=== PATIENT | female | born 1935 | race Caucasian/White ===

== ENCOUNTER 2016-05-23 16:30 | Inpatient (IN) | payer MEDICARE, OTHER ==
[~2016-05-23] VITALS: Ht 149.9 cm; Wt 75.7 kg
--- NOTE | ~2016-05-23 | CON ---
PATIENT'S NAME: BERTA SHAY [facility] AGE: 80 Y [address] ROOM: [place] [address] [place] [facility] [place]: 05/24/2016 Consultation DISCHARGE DATE: FAMILY PHYSICIAN: FILIPE CHRISTINE MD ATTENDING PHYSICIAN: Alek Akins DATE OF CONSULTATION: 05/23/2016 This is a [facility] Nephrology consultation. REASON FOR CONSULTATION: End-stage renal disease, on hemodialysis therapy with failed AV graft. HISTORY OF PRESENT ILLNESS: This is a 80-year-old female patient, who is well known to Dr. Akins in Nephrology, who presented to dialysis on Monday as routinely scheduled. She was found to have a very minimal bruit with clot return after attempting to access her AV graft in her left upper extremity. Therefore, the patient was unable to have her regular dialysis that she gets on Monday, Monday, Monday at [facility] in [place]. The patient has had a longstanding history of complications with her dialysis access and most recently [facility] for consultation for HeRO graft. The patient does follow with Dr. Sandoval and has had multiple fistulograms for access complications. She does have a past medical history of end-stage renal failure from diabetes and hypertension. Therefore, due to her history of end-stage renal disease, Nephrology has been consulted to manage her inpatient dialysis. PAST MEDICAL HISTORY: 1. Diabetes mellitus. 2. Hypertension. 3. Hyperlipidemia. 4. Chronic constipation. 5. Osteoporosis. 6. End-stage renal failure, on hemodialysis 3 days a week. 7. Spinal stenosis. 8. Peripheral vascular disease. 9. Paroxysmal atrial fibrillation. 10. Anemia of chronic kidney disease. 11. History of polio with residual scoliosis. 12. Diabetic retinopathy. PAST SURGICAL HISTORY: As listed above including: PATIENT'S NAME: BERTA SHAY [facility] AGE: 80 Y [address] ROOM: [place] [address] [place] [facility] [place]: 05/24/2016 Consultation DISCHARGE DATE: FAMILY PHYSICIAN: FILIPE CHRISTINE MD ATTENDING PHYSICIAN: Alek Akins 1. Left arm fistulogram with fistula passing in 2015. 2. Left arm AV graft fistulogram with angioplasty in August of 2015. 3. Tunneled dialysis catheter placement. 4. Right eye cataract surgery. 5. Right upper arm primary brachiocephalic AV fistula placement, failed. 6. Fistulogram and fistuloplasty of the left AV graft in September of 2015 and fistulogram of a poorly-functioning left AV graft in April of 2016. ALLERGIES: TO PENICILLIN. CURRENT HOME MEDICATIONS: 1. Levemir 35 units subcu every morning. 2. Losartan 50 mg p.o. b.i.d. 3. Amlodipine 2.5 mg q.h.s. 4. Coreg 25 mg p.o. b.i.d. 5. Sotalol 120 mg p.o. b.i.d. 6. Coumadin 4 mg p.o. 3 days a week. 7. Zantac 150 mg p.o. q.h.s. 8. Simvastatin 40 mg p.o. q.h.s. 9. Requip 0.25 mg p.o. q.h.s. 10. Aspirin 81 mg p.o. daily. 11. Ascorbic acid 500 mg p.o. daily. 12. Multivitamin 1 tablet daily. 13. PreserVision 1 tab twice a day. 14. Bumex 2 mg 4 days a week. 15. Renvela 800 mg p.o. 3 times a week. 16. Coumadin 8 mg p.o. 4 days a week. 17. Plavix 75 mg p.o. daily. 18. [place]-3 fatty acids 2000 mg p.o. b.i.d. 19. Acetaminophen 325/650 mg p.o. q.6 hours p.r.n. pain or fever. 20. Vitamin D3 1000 units p.o. 3 days a week. 21. Tylenol PM 1 tablet p.o. q.h.s. insomnia. 22. Lidocaine patch topically every day as needed for pain. 23. Tessy-Colace 1 tablet p.o. 2 days of the week. 24. Metamucil capsule 1 capsule p.o. daily. 25. Refresh tears 1 drop ophthalmic p.r.n. dry eyes. 26. Claritin 10 mg p.o. daily p.r.n. allergies. 27. Lidocaine cream 1 application topically 3 days a week prior to dialysis. SOCIAL HISTORY: The patient does live at [facility] by herself. She does have a caregiver 5 days of the week. Her daughter is very involved in her care. She does have a remote history of a [id number] history of smoking and does not smoke currently. She denies any illicit drug use or drinking alcohol at PATIENT'S NAME: BERTA SHAY [facility] AGE: 80 Y [address] ROOM: [place] [address] [place] [facility] [place]: 05/24/2016 Consultation DISCHARGE DATE: FAMILY PHYSICIAN: FILIPE CHRISTINE MD ATTENDING PHYSICIAN: Alek Akins this time. FAMILY HISTORY: Significant for diabetes and coronary artery disease. There is no history of renal disease or dialysis. REVIEW OF SYSTEMS: GENERAL: Denies any fever, chills, or night sweats. EYES: Denies any new changes. NOSE: No epistaxis or rhinorrhea. MOUTH: No gingival bleeding. THROAT: No sore throat, hoarseness, or cough. RESPIRATORY: Denies wheezing or hemoptysis. CARDIOVASCULAR: Denies any chest pain or palpitations. GASTROINTESTINAL: Denies any nausea, vomiting, or diarrhea. GENITOURINARY: She does continue to make urine despite dialysis. MUSCULOSKELETAL: Denies any new arthralgias or myalgias. HEMATOLOGICAL: Denies any bruising or easy bleeding on Plavix or Coumadin therapy. IMMUNOLOGICAL: Denies recent infections. PSYCHIATRIC: Denies depression or anxiety. NEUROLOGICAL: Denies any numbness or tingling in the upper or lower extremities. PHYSICAL EXAMINATION: VITAL SIGNS: Blood pressure 117/79, pulse 66, respirations 18, temperature is 97.3, and saturations are 97% on room air. GENERAL: On exam, this is a very pleasant, elderly white female, who appears her approximate stated age, in no acute distress. She is drowsy today. HEENT: Her head is normocephalic and atraumatic. Pupils equal, round, and reactive to light and accommodation. EOMs are intact. Nose is midline. Mouth: No gingival bleeding. Mucosa is pink and moist. NECK: Soft and supple. CARDIOVASCULAR: Regular rate and rhythm with unable to appreciate any murmurs, rubs, or thrills. LUNGS: Clear to auscultation anteriorly and posteriorly. Breaths are nonlabored. GASTROINTESTINAL: Bowel sounds are positive, nontender, nondistended. EXTREMITIES: Show no signs of peripheral edema, clubbing, or cyanosis. She does have an AV graft in the left upper extremity with no thrill as well as a right AV fistula with no thrill. SKIN: No new lesions or rashes. NEUROLOGIC: Cranial nerves 2 through 12 are grossly intact. LABORATORY DATA: PATIENT'S NAME: BERTA SHAY [facility] AGE: 80 Y [address] ROOM: [address] [address] [place] [facility] [place]: 05/24/2016 Consultation DISCHARGE DATE: FAMILY PHYSICIAN: FILIPE CHRISTINE MD ATTENDING PHYSICIAN: Alek Akinsiaz Hemoglobin is 10.1, hematocrit is 31.6, WBC is 5.9, and platelets are 161. Sodium is 148, potassium is 5.8, chloride is 106, CO2 is 24, BUN is 77, creatinine is 7.7, glucose is 150. INR is 2.4, PT is 26.9. ASSESSMENT AND PLAN: 1. End-stage renal disease, on hemodialysis therapy. We will obtain the patient's outpatient clinical record and provide hemodialysis accordingly. 2. Left failed AV graft. The patient is scheduled for a temporary line placement today with Interventional Radiology. We will await recommendations. The patient is also scheduled for a venogram [facility] next week on Monday for an upcoming HeRO graft placement. At this time, we will get and provide hemodialysis accordingly. 3. Diabetes mellitus. Per hospitalist. 4. Hyperphosphatemia. The patient is to continue her Renvela. 5. Anemia of chronic kidney disease. Continue Mircera 50 mcg every 4 weeks. This patient has been seen and assessed by Dr. Mcdowell. Her care is being conducted in consultation with Dr. Mcdowell as well as me. We will plan further recommendations as they are forthcoming. TALISHA TORRES DNP, NURSE MIDWIFE FOR MARLENE MCDOWELL MD ENS/modl /[id number] d: 05/25/161909 t: 06/03/16 1410, CONSULTATION REPORT
--- NOTE | ~2016-05-23 | DS ---
PATIENT'S NAME: BERTA SHAY [facility] AGE: 80 Y [address] ROOM: [address] [place], [place] [address] LOCATION: [facility] [place] ADMIT DATE: 05/24/2016 Discharge Summary DISCHARGE DATE: 05/26/2016 FAMILY PHYSICIAN: Brice Mohan MD ATTENDING PHYSICIAN: Matt Akins DISCHARGE DIAGNOSES: 1. End-stage renal disease, on hemodialysis. 2. Poorly functioning left AV graft. 3. Type 2 diabetes. 4. Hypertension. 5. Paroxysmal atrial fibrillation. 6. Long-term anticoagulation, on Coumadin. PRECEDURES: Tunnel graft catheter for dialysis REASON FOR ADMISSION: A poorly functioning left AV graft and difficulty with renal hemodialysis. LABORATORY DATA: Blood sugars have been in the 97 to 217 range, so fair control. White count yesterday 7.0 with hemoglobin 10.5 and platelets 153. Glucose yesterday at 9:40 a.m. was 149 with creatinine 5.4 and BUN 43, this was before hemodialysis. GFR was 8. Hemoglobin A1c 4.9. Protimes have come down since she was hospitalized on 05/23 at 2.4, protime was 1.6 at 2:28 a.m. yesterday and 1.3 at 8:58 prior to the procedure. She had a fluoroscopic-guided right temporary dialysis catheter placement, which was tunneled under moderate sedation. She was switched to the tunnel dialysis catheter from an external jugular vein temporary dialysis space. HOSPITAL COURSE: The patient's "Goofyness" per her daughter has improved post-dialysis. They took off a total of 3 L over 2 days, and the temporary dialysis catheter yesterday was working "better," but she cannot have that in long-term and so she is being transferred [facility] to Dr. Saleh for placement of a Taiwo catheter for long-term dialysis. The patient and family understand the need and the risks, and have agreed to the transfer. Meds will be per nursing med recon, and diet will be n.p.o. until she is in [place] and then they can decide. Activity will be per PT and ambulance crew, she is not moving on her own. Time on discharge was > 30 minutes. MD JOCELYN SOLOMON/unique PATIENT'S NAME: BERTA SHAY [facility] AGE: 80 Y [address] ROOM: [place] [address] LOCATION: [facility] [place] ADMIT DATE: 05/24/2016 Discharge Summary DISCHARGE DATE: 05/26/2016 FAMILY PHYSICIAN: Brice Mohan MD ATTENDING PHYSICIAN: Matt Akins /[id number] d: 05/27/16 0330 t: 05/27/16 1525, DISCHARGE SUMMARY
--- NOTE | ~2016-05-23 | HP ---
PATIENT'S NAME: BERTA SHAY [facility] AGE: 80 Y [address] ROOM: [place] [address] [place]ATION: [facility] [place] ADMIT DATE: 05/23/2016 History & Physical DISCHARGE DATE: FAMILY PHYSICIAN: FILIPE CHRISTINE MD ATTENDING PHYSICIAN: Alek Akins DATE OF SERVICE: CHIEF COMPLAINT: End-stage renal disease, failed hemodialysis access. HISTORY OF PRESENT ILLNESS: This is a 80-year-old female with a history of end-stage renal disease, on hemodialysis, Monday, Monday, and Monday who was admitted here having a failed fistula and was unable to get her dialysis today. The patient had a long history of issues with the fistula clotting up including needing to see a specialist in [place] for second opinion and trying to find a long-term solution for her access issues. As that been going on, the patient was attempting to have her scheduled hemodialysis done today, but the dialysis nurses were unable to access the left fistula that she has today. She did not get any dialysis done today. Last dialysis was on Monday. Dr. Akins and Dr. Mcdowell are the patient's director meetings and they will follow the patient while inpatient. Plan is to get a tunneled catheter with IR tomorrow. The patient currently denies any chest pain, shortness of breath, dizziness, or lightheadedness. Denies any cough, nausea, vomiting, diarrhea, or constipation. No fever or chills. PAST MEDICAL HISTORY: 1. End-stage renal disease on hemodialysis Monday, Monday, Monday. 2. Type 2 diabetes. 3. Hypertension. 4. Paroxysmal AFib, on Coumadin. FAMILY HISTORY: Father had CABG at age 98, also, had history of hypertension, diabetes, dyslipidemia. Mother also had history of diabetes. SOCIAL HISTORY: The patient is since 2009. Former smoker. Occasional alcohol usage. REVIEW OF SYSTEMS: A 10-point review of systems was conducted and were all negative except as described in the HPI. PHYSICAL EXAMINATION: PATIENT'S NAME: BERTA SHAY [facility] AGE: 80 Y [address] ROOM: [address] [address] LOCATION: [facility] [place] ADMIT DATE: 05/23/2016 History & Physical DISCHARGE DATE: FAMILY PHYSICIAN: FILIPE CHRISTINE MD ATTENDING PHYSICIAN: Alek Akins VITAL SIGNS: The patient is afebrile, blood pressure 134/78, pulse 66, respiratory rate 18, temperature 98.1, and saturating 98% on room air. GENERAL: The patient is awake, alert, and oriented x3 in no acute distress. HEENT: Moist mucous membranes. No jaundice or conjunctival pallor noted. SKIN: Without rash or lesions. CHEST: Clear to auscultation bilaterally. HEART: S1, S2, regular rate and rhythm. ABDOMEN: Soft, nontender, nondistended. Positive bowel sounds. NEURO: Grossly nonfocal. EXTREMITIES: Trace pitting edema bilaterally. MUSCULOSKELETAL: No redness, swelling, or reduction in range of motion noted in all upper and lower extremities. ASSESSMENT AND PLAN: 1. Failed dialysis access. The patient uses right upper arm primary brachiocephalic arteriovenous fistula 3 times a week, which has clotted up, and giving her trouble for the last several weeks now. The patient was not able to get hemodialysis today due to this. She is admitted for placement of possible tunneled catheter by IR so she gets her dialysis. Nephrology doctor will follow along during hospitalization. 2. Paroxysmal atrial fibrillation, on Coumadin. We will hold Coumadin and type and cross and prepare 2 units of fresh frozen plasma in case the INR is significantly higher than 1.5 to facilitate this so IR can place the tunneled catheter. 3. Iatrogenic hypercoagulability, secondary to Coumadin therapy. Management as above. 4. End-stage renal disease, on hemodialysis. 5. Type 2 diabetes, on insulin at home. We will continue the home insulin regimen at [id number] while n.p.o. and then slowly advance. 6. Coronary artery disease. The patient noted to be on aspirin and Plavix. Daughter tells me that the Plavix was added due to fistula clotting problems, but at this point, I will go ahead and hold Plavix noting that the patient is on Coumadin, aspirin, and Plavix at the same time. 7. Hypertension. Continue her home medications. 8. Deep vein thrombosis prophylaxis. We will use sequential compression devices and continue Coumadin once the catheter line is placed. MD HOLLAND NUÑEZ/unique PATIENT'S NAME: BERTA SHAY [facility] AGE: 80 Y [address] ROOM: [place] [address] LOCATION: [facility] [place] ADMIT DATE: 05/23/2016 History & Physical DISCHARGE DATE: FAMILY PHYSICIAN: FILIPE CHRISTINE MD ATTENDING PHYSICIAN: Alek Akins /[id number] D: T: 923 HISTORY & PHYSICAL
[~2016-05-23 16:30] MED LIST: ASCORBIC ACID500 MG PO; ASPIRIN EC81 MG PO; BUMETANIDE2 MG PO; CENTRUM SILVER1 TAB PO; COREG25 MG PO; COUMADIN 4MG **4 MG PO; COZAAR50 MG PO; FISH OIL 1,0001 EACH PO; LEVEMIR100 UNIT/1 SUB-Q; LOVENOX 8080 MG/0.8 SUB-Q; NORCO 5-325 MG1 TAB PO; NORVASC5 MG PO; NOVOLIN R100 UNIT/1 SUB-Q; PLAVIX75 MG PO; PRESERVISION A1 EAC2 PO; RENVELA800 MG PO; REQUIP0.25 MG PO; SIMVASTATIN40 MG PO; SOTALOL120 MG PO; ZANTAC150 MG PO
[2016-05-23] MEDS ORDERED: TYLENOL325 MG PO (18:26)
[2016-05-23] MEDS ORDERED: TYLENOL PM EX-1 EACH PO (18:27)
[2016-05-23] MEDS ORDERED: VITAMIN D1000 UNIT PO (18:27)
[2016-05-23] MEDS ORDERED: LIDOCAINE1 EACH TOP (18:29)
[2016-05-23] MEDS ORDERED: PERI-COLACE TA1 EACH PO (18:30)
[2016-05-23] MEDS ORDERED: METAMUCIL CAPSU1 CAP PO (18:30)
[2016-05-23] MEDS ORDERED: REFRESH TEARS15 ML OPHTH (18:30)
[2016-05-23] MEDS ORDERED: CLARITIN10 MG PO (18:31)
[2016-05-23] MEDS ORDERED: LIDOCAINE-PRIL1 EACH TOP (18:32)
--- NOTE | 2016-05-23 19:20 | NUR ---
80 Y/O FEMALE ADMITTED FOR END STAGE RENAL DISEASE AND IS GOING TO HAVE A TUNNEL DIALYSIS PLACED TOMORROW. ALLERGIES - PENICILLIN & NICKEL PT HAS A VERY EXTENSIVE MEDICAL & SURGICAL HISTORY - PLEASE SEE ADMISSION ASSESMENT PART 1 FOR ENTIRE PT HISTORY. CKD, END STAGE RENAL DISEASE, CAD, PVD, HTN, HIGH CHOL, DMII-ID, OSTEOPORSIS, LEGALLY BLIND, MAC DEGEN, ESOPHOGEAL ULCERS, OSTEOPORSIS, CHRONIC ANEMIA, PLEASE SEE ADM ASSESMENT PART 1 REPORT GIVEN TO PT PRIMARY CARE NURSE RN
[2016-05-23 20:18] LABS: BASOPHIL % 0.5 %; EOSINOPHIL # 0.3 K/uL (0.0-0.5); EOSINOPHIL % 5.6 %; HEMATOCRIT 31.6 % (33.0-46.0); HEMOGLOBIN 10.1 g/dL (10.0-15.0); IMMATURE GRANULOCYTE % 0.3 %; MCH 32.6 pg (27.0-34.0); MCV 101.9 fl (83.0-98.0); MONOCYTE # 0.6 K/uL (0.0-1.0); MONOCYTE % 10.4 %; MPV 9.9 fl (9.4-12.4); NEUTROPHIL % 67.2 %; NRBC % 0 /100WBC (0-0.00); PLATELET COUNT 161 K/uL (150-450); RDW-CV 15.1 % (11.9-14.6); WBC 5.9 K/uL (4.0-11.0)
[2016-05-23 20:28] LABS: INR - (THERAPEUTIC) 2.4 (0.9-1.1); PROTIME 26.9 SECONDS (9.6-11.1)
--- NOTE | 2016-05-24 07:21 | NUR ---
Significant Event: Pt oriented. Up with SBA, walker and gait belt. NPO since midnight. Requested tylenol PM for HS and has slept well tonight. Did get up to BR x 2 to void. No BM. BP's on taken on right lower leg or right lower forarm. Saline lock to right lower forearm. Follow up: Poss tunneled dialysis catheter today.
[2016-05-24 08:55] LABS: CALCIUM 9.3 mg/dL (8.5-10.5); PHOSPHORUS 5.7 mg/dL (2.5-4.9)
[2016-05-24 08:57] LABS: ANION GAP 16.8 (10.0-19.0); BASOPHIL % 0.8 %; CREATININE 7.7 mg/dL (0.5-1.1); EOSINOPHIL # 0.3 K/uL (0.0-0.5); EOSINOPHIL % 6.3 %; HEMATOCRIT 31.5 % (33.0-46.0); IMMATURE GRANULOCYTE % 0.4 %; LYMPHOCYTE # 0.8 K/uL (0.8-4.0); MCH 32.4 pg (27.0-34.0); MCHC 31.7 gm/dL (32.0-36.5); MCV 101.9 fl (83.0-98.0); MONOCYTE # 0.6 K/uL (0.0-1.0); MONOCYTE % 11.1 %; MPV 9.9 fl (9.4-12.4); NEUTROPHIL # (ANC) 3.2 K/uL (1.8-7.8); NEUTROPHIL % 65.4 %; NRBC % 0 /100WBC (0-0.00); PLATELET COUNT 154 K/uL (150-450); POTASSIUM 5.8 mMol/L (3.7-5.1); RBC 3.09 M/uL (3.50-5.50); WBC 4.9 K/uL (4.0-11.0)
[2016-05-24 09:01] LABS: INR - (THERAPEUTIC) 2.3 (0.9-1.1); PROTIME 25.9 SECONDS (9.6-11.1); PTT 35 SECONDS (25-32)
[2016-05-24 09:38] LABS: INR - (THERAPEUTIC) 2.3 (0.9-1.1); PROTIME 26.1 SECONDS (9.6-11.1)
--- NOTE | 2016-05-24 10:00 | NUR ---
Met with patient at bedside today. Introduced myself and explained the role of the CM department. Patient lives at [facility]. She has her daughter Margie who lives here in town and she visits patient daily to check on her and offer supports. Patient also has family in [facility] that come to see her approximately once a week. She states that she has been able to care for herself at home prior to this hospitalization. She has friends and other caregivers that check on her. She also states that she her daughter provides her with meals that she can easily heat up. Her plan is to return home at the time of discharge. Will continue to monitor her needs and offer supports as needed.
--- NOTE | 2016-05-24 10:22 | NUR ---
Diabetes consult: Patient with A1C of of 4.9% Blood sugars well controlled at 133 and 138.
--- NOTE | 2016-05-24 19:11 | NUR ---
AAOx3. Cooperative with cares. Up w/SBA, GB, walker with steady gait. Legally blind, so needs assistance. IV to R)wrist s/l'd. Limb alerts bilat for failed fistulas. BPs on lower extremity. VSS, afebrile, on RA. Had temporary dialysis catheter placed R)supraclavian; dressing intact. Patient went from interventional radiology straight to dialysis where 2liters were taken off with some difficulty. Returned to floor @1730. Refused supper. Tired from dialysis and long day. Family at bedside.
[2016-05-25 02:40] LABS: BASOPHIL % 0.6 %; EOSINOPHIL # 0.2 K/uL (0.0-0.5); EOSINOPHIL % 2.3 %; HEMATOCRIT 31.8 % (33.0-46.0); HEMOGLOBIN 10.5 g/dL (10.0-15.0); IMMATURE GRANULOCYTE # 0.1 K/uL (0.0-0.3); IMMATURE GRANULOCYTE % 0.9 %; LYMPHOCYTE % 14.9 %; MCH 32.7 pg (27.0-34.0); MCV 99.1 fl (83.0-98.0); MONOCYTE # 0.6 K/uL (0.0-1.0); MONOCYTE % 8.6 %; MPV 9.9 fl (9.4-12.4); NEUTROPHIL # (ANC) 5.1 K/uL (1.8-7.8); NEUTROPHIL % 72.7 %; NRBC % 0 /100WBC (0-0.00); PLATELET COUNT 153 K/uL (150-450); RBC 3.21 M/uL (3.50-5.50); RDW-CV 14.8 % (11.9-14.6)
[2016-05-25 03:34] LABS: INR - (THERAPEUTIC) 1.6 (0.9-1.1)
--- NOTE | 2016-05-25 05:35 | NUR ---
Significant Event: Pt has assisted fall to floor this shift. All fall measures were in place, pt stated her knee just buckled. No injuries noted. MD and family notified, no new orders. Cont fall precautions. Gave Vit. K and currently infusing 1 unit FFP. IV to right posterior forearm. Temp dialysis catheter dressing with no new drainage. VSS. AC/HS accuchecks with no SSI needed. Follow up: Continue plan of care.
[2016-05-25 09:24] LABS: INR - (THERAPEUTIC) 1.3 (0.9-1.1); PROTIME 13.7 SECONDS (9.6-11.1)
[2016-05-25 10:10] LABS: ALBUMIN 3.2 gm/dL (3.5-5.0); ANION GAP 16.9 (10.0-19.0); CALCIUM 8.1 mg/dL (8.5-10.5); POTASSIUM 4.9 mMol/L (3.7-5.1)
[2016-05-25 10:16] LABS: CREATININE 5.4 mg/dL (0.5-1.1)
--- NOTE | 2016-05-25 10:30 | NUR ---
Diabetes consult: Patient is currently off the nursing unit. Reviewed blood sugars and noted she had a low of 63 this morning. Blood sugars did improve after treatment to 103. Will continue to follow. May need to consider reducing Levemir dose.
--- NOTE | 2016-05-25 17:14 | NUR ---
Disoriented at times. BS 84 (daughter reports she is symptomatic "that low"). Gave grape juice. Ordered meal. She ate @1545. Had dialysis this a.m. then to Interventional Radiology placed tunneled dialysis cath to R) SC and removed temporary. Up w/2 assist, GB, walker. Voids small amounts. Legally blind. Possible transfer to [facility] for HERO placement. Bilat limb alerts for failed fistulas. PIV s/l'd to RW. Family at bedside.
--- NOTE | 2016-05-26 04:12 | NUR ---
Significant Event: Pt alert and Oriented x3. confused at times. Hypotensive at beggining of shift. but was within normal limits remainder of shift. RA. Bed alarm on at all times. hx of fall. 2 assist with walker and gaitbelt. very weak gait. reinforced dialysis port dressing. IV SL. BP on lower legs. limb alert on bilateral arms. possible transfer [place] for [facility]. Follow up:Monito BP. leagaly blind.
--- NOTE | 2016-05-26 12:20 | NUR ---
Consulted with nursing in huddle and consulted with ARLET Anto[facility] Hospitalist. Patient will be transferring to [facility] for HeRO placement today. Dr. Saleh is the accepting physician per Dr. Mcdowell's office. Patient will be transferred via ground ambulance to room 5446-2 at [facility]. I notified EMS to arrange the ambulance transport for [id number] today. Charge Nurse Alyssa Menendez notified patient's daughter by phone and family is in agreement with the transfer to [facility]. Packet is ready. Waiting on confirmation phone call from EMS for transport time.
--- NOTE | 2016-05-26 13:43 | NUR ---
Occasionally disoriented. Tunneled dialysis catheter to right subclavian placed 05/25; temporary right supra pulled yestereday. Bilateral failed fistulas; right side is older one. Peripheral IV to RW s/l'd. Vital signs on lower extremeties. 05/25 afternoon RLE became hypotensive and MAPs in 40-50s. Vital signs stable, afebrile, on room air. Last VS @1305 98.2 / LLE 133/54-MAP 89, RLE 70/46-MAP46 / HR 62/ 95% on RA, RR 16. Denies pain, nausea, vomiting, and diarrhea. Had small bowel movement today. Voids small amounts. Up with 1-2 assist, gait belt, and walker. Assisted fall night of 05/24/16 (was lowered to floor), left knee buckled. Ecchymosis to top of left foot. Diabetic with accuchecks AC/HS w/mild sliding scale. Last check @1100 was 370 w/8units given. Assymptomatic when low. Daughter states below 90 is low for her. Legally blind.
--- NOTE | 2016-05-26 19:34 | NUR ---
[facility] called with bed placement. Dayna was the local flatbed driver from [facility]. She gave me the bed of 5446-2 on [facility]. She also gave me a nurse-nurse number [phone]. JOSUÉ Antoine notified, Cynthia Crump,RN notified, notified. Margie daughter also notified. Also notified mala Colón to arrange transport to [facility].
== END 2016-05-26 14:00 | disposition critical access hospital (66) | DRG 314 ==
LOC: EDSTATUS 16:30 → GOPD 16:30 → GMSU 17:17 → GOPD 05-24 16:30 → GMSU 05-26 14:00
PROVIDERS: Internal Medicine; Internal Medicine Nephrology; ADMIT Internal Medicine
PROC: 02HV33Z Insertion of Infusion Device into Superior Vena Cava, Percutaneous Approach (ICD-10-PCS; principal; 2016-05-24)
PROC: B548ZZA Ultrasonography of Superior Vena Cava, Guidance (ICD-10-PCS; 2016-05-24)
PROC: 0JH63XZ Insertion of Tunneled Vascular Access Device into Chest Subcutaneous Tissue and Fascia, Percutaneous Approach (ICD-10-PCS; 2016-05-24)
PROC: 05HM33Z Insertion of Infusion Device into Right Internal Jugular Vein, Percutaneous Approach (ICD-10-PCS; 2016-05-24)
PROC: B513YZA Fluoroscopy of Right Jugular Veins using Other Contrast, Guidance (ICD-10-PCS; 2016-05-24)
PROC: 5A1D60Z (ICD-10-PCS; 2016-05-24)
PROC: 30233K1 Transfusion of Nonautologous Frozen Plasma into Peripheral Vein, Percutaneous Approach (ICD-10-PCS; 2016-05-25)
DX: T82.590A Other mechanical complication of surgically created arteriovenous fistula, initial encounter (principal); N18.6 End stage renal disease; I12.0 Hypertensive chronic kidney disease with stage 5 chronic kidney disease or end stage renal disease; D68.59 Other primary thrombophilia; I48.0 Paroxysmal atrial fibrillation; E83.39 Other disorders of phosphorus metabolism; E11.319 Type 2 diabetes mellitus with unspecified diabetic retinopathy without macular edema; Z79.01 Long term (current) use of anticoagulants; E78.5 Hyperlipidemia, unspecified; I73.9 Peripheral vascular disease, unspecified; K59.09 Other constipation; M81.0 Age-related osteoporosis without current pathological fracture; Z86.12 Personal history of poliomyelitis; Z98.62 Peripheral vascular angioplasty status; Z87.891 Personal history of nicotine dependence; Z99.2 Dependence on renal dialysis; D63.1 Anemia in chronic kidney disease
CPT/HCPCS: C1750; G0378; G0379; J1644; J2405; J7050; P9017; Q4081

== ENCOUNTER → 2016-07-30 | Emergency (ER) | payer MEDICARE, OTHER ==
[~2016-07-30] MED LIST changes: +CLARITIN10 MG PO; +LIDOCAINE-PRIL1 EACH TOP; +LIDOCAINE1 EACH TOP; +METAMUCIL CAPSU1 CAP PO; +PERI-COLACE TA1 EACH PO; +REFRESH TEARS15 ML OPHTH; +TYLENOL PM EX-1 EACH PO; +TYLENOL325 MG PO; +VITAMIN D1000 UNIT PO
== END | disposition disaster alternative care site (69) ==
LOC: GAMB 15:44
DX: M19.90 Unspecified osteoarthritis, unspecified site (principal); E10.8 Type 1 diabetes mellitus with unspecified complications

== ENCOUNTER → 2016-08-25 | Outpatient (CLI) | payer MEDICARE, OTHER ==
--- NOTE | ~2016-08-25 | ENPV ---
Vascular Upper Extremities Veins Procedure Demographics Patient Name BERTA SHAY Date of Study 08/25/2016 Patient Number [id number] Gender Female Date of 1935 Age 81 Visit Number [id number] Height Accession Number [id number] Weight Room Number BSA BMI Referring Tashi Gaming MD Interpreting Eric Pritchard Physician Physician Physician Ordering Tashi Gaming Manager Exchange Physician Yardage Tufting Machine Operator Elina Stewart, RT,RVT,RDCS Conclusions Summary TECHNIQUE: The deep and superficial veins of the upper extremity on the right were evaluated with hampton scale utilizing compression and augmentation, and evaluation of phasic flow using spectral Doppler and color flow FINGDINGS: Deep and superficial veins of the right upper extremity show normal color flow and compressibility without thrombosis. IMPRESSION: NEGATIVE RIGHT UPPER EXTREMITY VENOUS DOPPLER. Procedure Type of Study: Veins:Upper Extremities Veins, Upper Extremity Right. Appropriate Use Criteria:9 Allergies - Penicillin. - Other:(nickel). - Other:(Xavier). - Penicillin. - Penicillin. - Other:(nickel). Patient Status:Routine. Study Location:Vascular Lab. Technical Quality:Limited visualization. - Preliminary reported to:SHAWNA Hazel. Velocities are measured in cm/s ; Diameters are measured in cm Right UE Vein Measurements 2D and Doppler Measurements + + + + +--------+ + !Location !Visualized !Compressibility !Thrombosis !Signal !Reflux ! + + + + +--------+ + !IJV !Yes ! !None ! ! ! + + + + +--------+ + !SCV !Yes ! !None ! ! ! + + + + +--------+ + !Axillary !Yes ! !None ! ! ! + + + + +--------+ + !Brachial !Yes !Yes !None ! ! ! + + + + +--------+ + !Radial !Yes ! !None ! ! ! + + + + +--------+ + !Ulnar !Yes ! !None ! ! ! + + + + +--------+ + !Basilic !Yes ! !None ! ! ! + + + + +--------+ + Signature dtt: Len Reyes dtheide: 08/25/16 1344 Physician Self Edit
== END | disposition disaster alternative care site (69) ==
LOC: GCAR 13:13
DX: M79.89 Other specified soft tissue disorders (principal)

== ENCOUNTER → 2016-08-29 | Outpatient (CLI) | payer MEDICARE, OTHER | END | disposition disaster alternative care site (69) | LOC: GRAD 08-25 13:00 | PROC: 05PY33Z Removal of Infusion Device from Upper Vein, Percutaneous Approach (ICD-10-PCS; principal; 2016-08-29) | DX: N18.6 End stage renal disease (principal); M79.89 Other specified soft tissue disorders ==